=== PATIENT | male | born 1940 | race Caucasian/White ===

== ENCOUNTER → 2017-02-03 15:55 | Outpatient (CLI) | payer MEDICARE, OTHER ==
[2016-07-10 07:05] VITALS: BMI 28.1
[~2017-02-03 15:55] MED LIST: ASPIRIN EC81 MG PO; CARAFATE1 G/10 ML PO; FISH OIL 1,2001 CA1 PO; FLOMAX0.4 MG PO; FLUTICASONE PRO16 GM NS; HYTRIN10 MG PO; LEVOTHROID88 MCG PO; LEVOXYL100 MCG PO; NAPROSYN500 MG PO; PLAVIX75 MG PO; POTASSIUM99 M1 PO; PRAVACHOL20 MG PO; PROTONIX40 MG PO; RESTORIL15 MG PO
== END | disposition home or self-care (01) ==
LOC: D.CT 15:55
DX: R31.9 Hematuria, unspecified (principal)

== ENCOUNTER 2018-04-26 11:41 | Outpatient (CLI) | payer MEDICARE, OTHER ==
[~2018-04-26] VITALS: Ht 175.3 cm; Wt 75.5 kg
[2018-04-26 13:45] VITALS: BP 133/92; Ht 175.3 cm; Wt 75.5 kg
== END 2018-04-26 14:10 | disposition home or self-care (01) ==
LOC: D.OPS 11:41
DX: R33.9 Retention of urine, unspecified (principal); N39.0 Urinary tract infection, site not specified; Z01.812 Encounter for preprocedural laboratory examination

== ENCOUNTER 2018-05-19 06:25 | Day surgery (SDC) | payer MEDICARE, OTHER ==
[2018-05-17 16:30] LABS: HEMATOCRIT 35.4 % (42.0-54.0); HEMOGLOBIN 12.3 g/dL (13.5-17.5); MCH 32.5 pg (26.0-34.0); MCHC 34.7 g/dL (31.0-37.0); MCV 93.4 fL (80.0-100.0); MEAN PLATELET VOLUME 8.4 fL (7.4-10.4); RBC 3.79 10x6/uL (4.20-6.10); WBC 7.1 10x3/uL (4.8-10.8)
[~2018-05-19] VITALS: Ht 172.7 cm; Wt 70.3 kg
--- NOTE | ~2018-05-19 | OP ---
PATIENT NAME: ANTONIA SAMUEL MEDICAL RECORD: [id number] :38 LOCATION:D.OPS ADMISSION DATE: SURGEON: DAVID FONG MD DATE OF OPERATION: 05/19/2018 SURGEON: David Fong MD ANESTHESIA: General anesthesia by Clay Ruth CRNA. PREOPERATIVE DIAGNOSIS: Urinary retention due to obstructive benign prostatic hypertrophy. PROCEDURES: Cystoscopy, GreenLight laser transurethral resection of the prostate, power 80-100 laws, laser on time of 20 minutes 46 seconds, energy 109,779 kilojoules. FINDINGS: Very enlarged bilateral lateral lobes, which were very vascular. Single ureteral orifices bilaterally located some distance away from the bladder neck. No bladder tumors. Heavily trabeculated bladder with cellules and diverticula. COMPLICATIONS: None. ESTIMATED BLOOD LOSS: Minimal. CLINICAL HISTORY: This is a 78-year-old male, who went into urinary retention around of this year. He has had an indwelling Mercado catheter since then. He has been on medications, but he does not wish to continue being on medications. He wants to have a TURP to get out of urinary retention. A 26 years ago in [place], he had a TURP for obstructive BPH. His cardiac history includes 7 coronary artery stents, which were last placed in 2013. He was on Plavix. However, he saw Dr. Tapia recently and Dr. Tapia cleared him for surgery. Also, Dr. Tapia discontinued the Plavix. He last took Plavix 10 days ago. He is not allergic to any medications. He was given Levaquin IV economics consultant to the OR. DESCRIPTION OF PROCEDURE: The patient was given induction of general anesthesia. He was placed in dorsal lithotomy position and prepped and draped. The laser resectoscope was introduced. Penile urethra was nonobstructive with no signs of strictures. The prostatic lateral lobes were quite enlarged and meet in the midline. A lot of inflammatory tissue was seen from irritation from the indwelling Mercado catheter. Going into the bladder, the bladder was also irritated from the indwelling Mercado catheter. No bladder tumors were seen. Single ureteral orifices were seen at some distance away from the bladder neck. We then introduced the laser fiber and starting at 80 laws, we resected the posterior wall of the prostate from the bladder neck to just proximal to the verumontanum. The verumontanum was very difficult to see due to the inflammatory tissue around it. We immediately encountered quite significant venous bleeding. Going on the lateral lobes also to try to get control of coagulation, I had a lot of difficulty with one prominent vein in the right apex. Finally, with a lot of laser energy and using the laser vaporization as well as coagulation settings, I managed to get this venous bleeding under control. By this time, the prostate had become somewhat desiccated and we had increased the power level to 100 laws. Once the bleeding was under control, it was relatively quick to vaporize the rest of the BPH tissue. At the end of the procedure, we were down to the pseudocapsule all around from the bladder neck to OPERATIVE REPORT [id number] ANTONIA SAMUEL just proximal to the verumontanum. No bleeding of any kind was seen. Since the prostatic urethral surface is somewhat irregular, I inserted a Sensor wire into the bladder through the scope. The scope was then removed, leaving the wire in place. Over the wire, we inserted a 21-Burundian 3-way Mercado catheter with a chalkyitsik tip. Once the catheter was in the bladder, the wire was removed entirely. The catheter Mercado balloon was then inflated with 20 mL of sterile water. The inflow port was capped. The Mercado catheter was put to leg bag drainage. We will send the patient home with the Mercado catheter. He will come to my office tomorrow to have the catheter removed for a voiding trial. TRANSINT:[id number] Voice Confirmation ID: [id number] DOCUMENT ID: [id number] DAVID FONG MD at 1119 CC: [id number] DICTATION DATE: 05/19/18 1030 MISSION COORDINATOR: 05/19/18 1112 REG [facility] [address] [place] [address]
[2018-05-19 07:40] VITALS: BP 112/71; Ht 172.7 cm; Wt 70.3 kg
== END 2018-05-19 11:50 | disposition home or self-care (01) ==
LOC: D.OPS 06:25 → D.PAN 08:00 → D.OPS 08:00 → D.PAN 08:40 → D.OPS 08:40
PROVIDERS: Anesthesiology
DX: N40.1 Benign prostatic hyperplasia with lower urinary tract symptoms (principal); N13.8 Other obstructive and reflux uropathy; R33.8 Other retention of urine; Z01.812 Encounter for preprocedural laboratory examination

== ENCOUNTER → 2019-01-06 09:06 | Outpatient (CLI) | payer MEDICARE, OTHER ==
[2018-05-19 07:40] VITALS: BMI 23.6
== END | disposition home or self-care (01) ==
LOC: D.MRI 09:06
DX: M25.562 Pain in left knee (principal)

== ENCOUNTER → 2019-03-01 15:05 | Outpatient (CLI) | payer MEDICARE, OTHER ==
[2018-05-19 07:40] VITALS: BMI 23.6
== END | disposition home or self-care (01) ==
LOC: D.RAD 15:05
PROVIDERS: ATTEND Urology
DX: R10.9 Unspecified abdominal pain (principal)

== ENCOUNTER → 2019-03-01 18:37 | Outpatient (CLI) | payer MEDICARE, OTHER ==
[2018-05-19 07:40] VITALS: BMI 23.6
== END | disposition home or self-care (01) ==
LOC: D.LABREF 18:37
PROVIDERS: ATTEND Urology
DX: N39.0 Urinary tract infection, site not specified (principal)

== ENCOUNTER → 2019-03-06 14:23 | Outpatient (CLI) | payer MEDICARE, OTHER | END | disposition home or self-care (01) | LOC: D.CT 14:23 | DX: R10.9 Unspecified abdominal pain (principal) ==

== ENCOUNTER 2019-06-03 14:30 | Emergency (ER) | payer MEDICARE, OTHER ==
[~2019-06-03] VITALS: Ht 172.7 cm; Wt 71.4 kg
[2019-06-03 14:32] VITALS: Ht 172.7 cm; Wt 71.4 kg
[2019-06-03] MEDS ORDERED: VOLTAREN75 MG PO (16:15)
[2019-06-03 16:37] VITALS: BP 136/72
== END 2019-06-03 16:38 | disposition home or self-care (01) ==
LOC: D.ER 14:30
DX: S99.911A Unspecified injury of right ankle, initial encounter (principal); X50.1XXA Overexertion from prolonged static or awkward postures, initial encounter; Y93.89 Activity, other specified; Y92.89 Other specified places as the place of occurrence of the external cause

== ENCOUNTER → 2019-08-07 09:30 | Outpatient (CLI) | payer MEDICARE, OTHER ==
[2019-06-03 14:32] VITALS: BMI 23.9
[~2019-08-07 09:30] MED LIST changes: +VOLTAREN75 MG PO
== END | disposition home or self-care (01) ==
LOC: D.MRI 09:30
PROVIDERS: ATTEND Family Medicine
DX: M51.16 Intervertebral disc disorders with radiculopathy, lumbar region (principal)

== ENCOUNTER 2019-08-23 12:30 | Outpatient (CLI) | payer MEDICARE, OTHER ==
[~2019-08-23] VITALS: Ht 177.8 cm; Wt 71.4 kg
[2019-08-23 13:03] VITALS: BP 120/77; Ht 177.8 cm; Wt 71.4 kg
[2019-08-23 13:48] LABS: APPEARANCE CLEAR (CLEAR); BILIRUBIN NEGATIVE (NEGATIVE); COLOR YELLOW (YELLOW); GLUCOSE NEGATIVE (NEGATIVE); KETONE NEGATIVE (NEGATIVE); NITRITE NEGATIVE (NEGATIVE); PROTEIN NEGATIVE (NEGATIVE)
== END 2019-08-23 13:29 | disposition home or self-care (01) ==
LOC: D.OPS 12:30
PROVIDERS: ATTEND General Practice
DX: N39.0 Urinary tract infection, site not specified (principal)

== ENCOUNTER 2019-08-30 10:28 | Outpatient (CLI) | payer MEDICARE, OTHER ==
[~2019-08-30] VITALS: Ht 172.7 cm; Wt 72.7 kg
--- NOTE | ~2019-08-30 | HEMODYNAMI ---
PATIENT:ANTONIA SAMUEL MEDICAL RECORD: [id number] : 38 LOCATION:SVETLANA ADMISSION DATE: 08/30/19 Generatedon:08/30/201914:25 Patient name: ANTONIA SAMUEL Patient #: [id number] SSN: DO B: 1940 Date of study: 08/30/2019 Page: Of Hemodynamic Procedure Report Patient Data Patient Demographics First Name: ANTONIA Gender: Male Last Name: JIMMIE : 1940 [facility] Initial: MARY Age: 79 year(s) Patient #: [id number] Race: Unknown Additional ID: [id number] Contact details [address]: [address] [place] [address] [place] State: [place] City: [place] Zip code: [address] Admission Admission Data Admission Date: 08/30/2019 Admission Time: 10:28 Procedure Procedure Types Cath Procedure Peripheral Cath Diagnostic Procedure Kyphoplasty Kyphoplasty Lumbar Procedure Description Procedure Date Procedure Date: 08/30/2019 Procedure Start Time: 13:29 Procedure Staff Name Function Fredy Floydeben RT Scrub Clyde Mcrae Additional personnel Crow Chappell MD Performing Physician Carmen Saravia RN Nurse Deirdre Aguilar RT Monitor Trinh Robledo RN Nurse Procedure Data Cath Procedure Fluoroscopy Diagnostic fluoroscopy Total fluoroscopy Time: time: 13.2 min 13.2 min Diagnostic fluoroscopy Total fluoroscopy dose: 867 dose: 867 mGy mGy Hemodynamics Rest Heart Rate: 60 (bpm) Snapshots Pre Cath Intra NCS Post Cath Vital Signs Time Heart Resp SPO2 etCO2 NIBP (mmHg) Rhythm Pain Sedation Rate (ipm) (%) (mmHg) Status Level (bpm) 12:57:33 100 23.2 Measuring NSR 0 (11) 10(A) , No pain 12:58:17 100 12 129/81(93) NSR 0 (11) 10(A) , No pain 13:02:28 60 20 97 24.7 124/75(105) NSR 0 (11) 10(A) , No pain 13:06:37 58 19 98 20.2 137/75(113) NSR 0 (11) 10(A) , No pain 13:10:53 61 29 100 24.7 124/68(106) NSR 0 (11) 10(A) , No pain 13:15:03 60 20 100 21 119/71(98) NSR 0 (11) 10(A) , No pain 13:19:09 66 19 100 15.7 124/68(107) NSR 0 (11) 10(A) , No pain 13:23:21 61 17 98 10.5 115/67(94) NSR 0 (11) 10(A) , No pain 13:27:43 62 23 99 3.7 111/64(86) NSR 0 (11) 10(A) , No pain 13:30:09 62 18 99 3 114/63(85) NSR 0 (11) 10(A) , No pain 13:33:09 59 19 98 5.2 Measuring NSR 0 (11) 10(A) , No pain 13:33:25 60 19 99 4.5 125/69(109) NSR 0 (11) 10(A) , No pain 13:35:34 61 17 98 3.7 120/71(94) NSR 0 (11) 10(A) , No pain 13:37:43 61 15 98 3.7 115/67(92) NSR 0 (11) 10(A) , No pain 13:39:50 62 16 98 3.7 118/66(92) NSR 0 (11) 10(A) , No pain 13:41:55 61 18 98 6 121/75(97) NSR 0 (11) 10(A) , No pain 13:44:04 61 16 98 4.5 115/69(91) NSR 0 (11) 10(A) , No pain 13:46:11 63 17 98 1.5 114/69(86) NSR 0 (11) 10(A) , No pain 13:48:18 62 15 98 4.5 112/67(89) NSR 0 (11) 10(A) , No pain 13:50:25 60 15 98 4.5 116/64(94) NSR 0 (11) 10(A) , No pain 13:52:32 62 14 98 3.7 111/68(89) NSR 0 (11) 10(A) , No pain 13:54:39 61 15 98 3.7 112/65(87) NSR 0 (11) 10(A) , No pain 13:56:46 62 15 98 4.5 115/64(88) NSR 0 (11) 10(A) , No pain 13:58:53 62 15 98 3.7 115/66(86) NSR 0 (11) 10(A) , No pain 14:01:02 62 15 98 4.5 108/61(80) NSR 0 (11) 10(A) , No pain 14:03:07 62 13 98 4.5 108/65(79) NSR 0 (11) 10(A) , No pain 14:05:12 64 14 98 5.2 109/62(86) NSR 0 (11) 10(A) , No pain 14:07:19 61 15 98 3.7 109/62(88) NSR 0 (11) 10(A) , No pain 14:09:24 61 15 98 3.7 114/65(82) NSR 0 (11) 10(A) , No pain 14:11:33 63 14 98 2.2 109/64(90) NSR 0 (11) 10(A) , No pain 14:13:38 65 17 98 3.7 119/70(90) NSR 0 (11) 10(A) , No pain 14:15:45 62 14 98 6 115/69(87) NSR 0 (11) 10(A) , No pain 14:17:52 61 14 98 9 111/69(94) NSR 0 (11) 10(A) , No pain 14:19:57 64 14 98 8.2 115/68(93) NSR 0 (11) 10(A) , No pain 14:22:02 58 15 98 7.5 122/73(90) NSR 0 (11) 10(A) , No pain Procedure Log Time Note 12:52:35 Carmen Saravia RN sent for patient. Start room use. 12:52:40 Clyde Mcrae present and monitoring patient for TIVA. 12:52:54 Use device set IR Diagnostic 12:52:57 Sterile Angiographic Pack opened to sterile field. 12:52:57 Bag Decanter (2002S) opened to sterile field. 12:52:58 Tegaderm 4 x 4 (1626W) opened to sterile field. 12:53:08 Plan of Care:Hemodynamics will remain stable., Cardiac rhythm will remain stable., Comfort level will be maintained., Respiratory function will remain adequate., Patient/ family verbilizes understanding of procedure., Procedure tolerated without complication., Recovers from procedure without complications.. 12:53:14 Patient received from Outpatients to IR Alert and oriented. Tansferred to table in Prone position. 12:53:19 Warm blankets applied, and belkys hugger turned on for patient comfort. 12:53:20 Correct patient and procedure confirmed by team. 12:53:21 ECG and BP/O2 sat monitors applied to patient. 12:53:22 - 12:53:38 SEE ANESTHESIA NOTE FOR PRE PROCEDURE TIVA 12:53:39 - 12:53:48 Alarms reviewed by RMitchell NMitchell 12:53:48 Sharps counted by scrub and verified by RMitchellN. 12:53:54 Lumbar area was prepped with dura-prep and draped in sterile fashion 12:55:44 Vital chart was started 13:05:11 Baseline sample Acquired. 13:26:35 Physician arrived 13:28:36 --------ALL STOP TIME OUT------ 13:28:37 Final Timeout: patient, procedure, and site verified with staff and physician. All members of the team are in agreement. 13:29:14 Fire Safety Assessment: A--An alcohol-based skin anteseptic being used preoperatively., C--Open oxygen or nitrous oxide is being used. 13:29:21 Full Disclosure recording started 13:29:21 Procedure started. 13:29:26 Local anesthetic to Lumbar area with Lidocaine 1% by Crow Chappell MD.INITIAL ACCESS ONLY 13:47:25 Buford BONE BX 11GA kit opened to sterile field. 13:47:26 PIPE BNCMNT CURV BALLOON [id number] opened to sterile field. 14:15:34 Buford BONE CEMENT WITH NEEDLE AUTOPLEX Kit opened to sterile field. 14:16:37 Fluoroscopy time 13.20 minutes. 14:16:43 Fluoroscopy dose: 867 mGy 14:16:43 Flurop Dose total: 867 14:16:46 Procedure ended.(Physican Out) 14:16:48 Procedure and supply charges have been captured, reviewed, submitted an d are correct. 14:23:26 Report given to Outpatients. 14:24:05 Full Disclosure recording stopped Device Usage Item Name Manufacture Quantity Catalog Hospital Part Current Minim al Lot# / Number Charge Number Stock Stock Serial# Code Bag Decanter Microtek 1 [id number] 5 () Medical Inc. Sterile Cardinal 1 [id number] [id number] 5 Angiographic Health Pack Tegaderm 4 x 3M 1 1626W [id number] 345165 [id number] 5 4 (1626W) Buford BONE Pipe 1 [id number] [id number] [id number] 250551 5 BX 11GA kit PIPE Buford 1 [id number] 220944 174619 835174 1 BNCMNT CURV BALLOON [id number] Pipe BONE Buford 1 [id number] 678169 381233 086183 5 CEMENT WITH NEEDLE AUTOPLEX Kit Signature Audit [place] Stage Time Signature Unsigned Intra-Procedure 08/30/2019 Deirdre Aguilar 2:25:53 PM RT(R) [place] [id number] [place] [address]
[2019-08-30 11:23] LABS: EOSINOPHILS 12.1 % (0-7); HEMATOCRIT 39.3 % (42.0-54.0); HEMOGLOBIN 13.2 g/dL (13.5-17.5); IMMATURE GRANULOCYTES 0.6 % (0-5); LYMPHOCYTES 28.6 % (15-50); MCH 32.6 pg (26.0-34.0); MCHC 33.6 g/dL (31.0-37.0); MEAN PLATELET VOLUME 8.6 fL (7.4-10.4); MONOCYTES 10.5 % (2-11); NEUTROPHILS 47.2 % (40-80); PLATELET COUNT 256 10x3/uL (130-400); RBC 4.05 10x6/uL (4.20-6.10); RDW 12.6 % (11.5-14.5); WBC 6.9 10x3/uL (4.8-10.8)
[2019-08-30 11:34] VITALS: BP 145/63; Ht 172.7 cm; Wt 72.7 kg
[2019-08-30 11:34] LABS: CALC OSMOLALITY 279 mosm/kg (275-300); CALCIUM 9.4 mg/dL (8.5-10.1); CARBON DIOXIDE 29.3 mmol/L (21.0-32.0); CHLORIDE - SERUM 103 mmol/L (98-107); CREATININE - SERUM 0.8 mg/dL (0.6-1.3); GLUCOSE 98 mg/dL (74-106); POTASSIUM - SERUM 4.6 mmol/L (3.5-5.1); SODIUM 139 mmol/L (136-145); UREA NITROGEN 18 mg/dL (7-18); eGFR NON AFRICAN AMERICAN > 90 mL/min (90-120)
[2019-08-30 11:43] LABS: APTT 26.6 SECONDS (22.8-39.4); INR 1.01 (0.85-1.17); PROTIME 12.8 SECONDS (11.6-15.0)
--- NOTE | 2019-08-30 15:15 | NUR ---
1430 SEE POST PROCEDURE CHECKLIST FOR VITAL SIGN TRENDS. TIME FRAME GIVEN FOR DISCHARGE. REMINDED PT TO STAY FLAT. AT SIDE 1445 WARM BLANKETS FOR COMFORT. 1500 SUSANNE DUMONT RN ROUNDS AND GIVES PT AND PT'S DISCHARGE INSTRUCTIONS.
== END 2019-08-30 16:50 | disposition home or self-care (01) ==
LOC: D.SP 10:28 → D.RAD 13:00 → D.SP 16:50
PROVIDERS: ATTEND General Practice
DX: M48.56XA Collapsed vertebra, not elsewhere classified, lumbar region, initial encounter for fracture (principal)

== ENCOUNTER 2019-08-31 22:53 | Emergency (ER) | payer MEDICARE, OTHER ==
[~2019-08-31] VITALS: Ht 172.7 cm; Wt 72.7 kg
[2019-08-31 22:56] VITALS: Ht 172.7 cm; Wt 72.7 kg
[2019-09-01] MEDS ORDERED: HYDROCODONE-A1 UDTA2 PO (01:20)
[2019-09-01 02:25] VITALS: BP 126/75
== END 2019-09-01 02:38 | disposition home or self-care (01) ==
LOC: D.ER 22:53
DX: S42.002A Fracture of unspecified part of left clavicle, initial encounter for closed fracture (principal); W19.XXXA Unspecified fall, initial encounter

== ENCOUNTER 2019-09-04 16:57 | Emergency (ER) | payer MEDICARE, OTHER ==
[~2019-09-04] VITALS: Ht 172.7 cm; Wt 72.7 kg
[~2019-09-04 16:57] MED LIST changes: +HYDROCODONE-A1 UDTA2 PO
[2019-09-04 17:06] VITALS: Ht 172.7 cm; Wt 72.7 kg
[2019-09-04 21:43] VITALS: BP 130/51
== END 2019-09-04 21:43 | disposition other institution (70) ==
LOC: D.ER 16:57
DX: S32.402A Unspecified fracture of left acetabulum, initial encounter for closed fracture (principal); S42.002A Fracture of unspecified part of left clavicle, initial encounter for closed fracture; S32.592A Other specified fracture of left pubis, initial encounter for closed fracture; W19.XXXA Unspecified fall, initial encounter

== ENCOUNTER → 2019-10-06 09:11 | Outpatient (CLI) | payer MEDICARE, OTHER ==
[2019-09-04 17:06] VITALS: BMI 24.3
== END | disposition home or self-care (01) ==
LOC: D.CT 09:11
PROVIDERS: ATTEND Clinical Nurse Specialist Family Health
DX: S32.402A Unspecified fracture of left acetabulum, initial encounter for closed fracture (principal)

== ENCOUNTER → 2020-01-30 08:54 | Outpatient (CLI) | payer MEDICARE, OTHER ==
[2019-12-22 14:01] VITALS: BMI 24.3
[~2020-01-30 08:54] MED LIST changes: +HYDROCODON-ACE1 EAC7 PO; +LOW DOSE ASPIRI81 M1 PO; +SYNTHROID112 MCG PO
== END | disposition home or self-care (01) ==
LOC: D.CT 08:30
PROVIDERS: ATTEND Family Medicine
DX: I73.9 Peripheral vascular disease, unspecified (principal)

== ENCOUNTER → 2020-03-07 09:34 | Outpatient (CLI) | payer MEDICARE, OTHER ==
[2019-12-22 14:01] VITALS: BMI 24.3
== END | disposition home or self-care (01) ==
LOC: D.MRI 03-06 10:00
PROVIDERS: ATTEND Family Medicine
DX: M51.16 Intervertebral disc disorders with radiculopathy, lumbar region (principal)

== ENCOUNTER 2020-03-20 11:56 | Inpatient (IN) | payer MEDICARE, OTHER ==
[~2020-03-20] VITALS: Ht 172.7 cm; Wt 75.9 kg
--- NOTE | ~2020-03-20 | OP ---
PATIENT NAME: ANTONIA SAMUEL MEDICAL RECORD: [id number] :38 LOCATION:D.MS Morgan2214 ADMISSION DATE:03/21/20 SURGEON: TREY SIGALA MD DATE OF OPERATION: 03/22/2020 PREOPERATIVE DIAGNOSES: Lumbar spinal stenosis and foraminal stenosis at L3-L4 on the left. POSTOPERATIVE DIAGNOSES: Lumbar spinal stenosis and foraminal stenosis at L3-L4 on the left. PROCEDURE: Left L3-L4 lumbar laminotomy, medial facetectomy and foraminotomy with METRx retractor. SURGEON: Trey Sigala MD DESCRIPTION AND TECHNIQUE: After induction of general endotracheal anesthesia, the patient was rolled prone on a Mauricio frame. Lumbar spine was prepped and draped in usual sterile fashion. Fluoroscopic x-ray and a spinal needle localized the L3-L4 interspace on the left side. A series of dilators were used to advance a METRx retractor at the L3-L4 interspace on the left. Series of dilators were used to advance a METRx retractor at L3-L4 on the left. The level was confirmed with fluoroscopic x-ray. Midas-Adan drill and microscope were used to perform a laminotomy, medial facetectomy and foraminotomy at L3-L4 on the left. Hypertrophied ligamentum flavum was removed with Cloward rongeurs. The left L3 and L4 nerve roots were decompressed in this process. Meticulous hemostasis was maintained throughout the wound. Ancef irrigant solution was used until it was crystal clear. The retractor was removed. The fascia was closed with 2-0 Vicryl suture. Subdermal layer was closed with 3-0 Vicryl suture. The skin was closed with tiffanie. A sterile dressing was applied to the wound. The patient was awakened in good condition, taken to recovery. All counts were reported as correct. Estimated blood loss was minimal. TRANSINT:[id number] Voice Confirmation ID: [id number] DOCUMENT ID: [id number] TREY SIGALA MD CC: [id number] DICTATION DATE: 04/29/20700 FRAME FEEDER: 04/29/20 0914 DIS IN 03/25/[address] [facility] [address] [place] [address]
[2020-03-20] MEDS ORDERED: CILOSTAZOL100 MG PO (12:29)
[2020-03-20 13:06] LABS: BASOPHILS 0.5 % (0-2); EOSINOPHILS 5.1 % (0-7); HEMATOCRIT 39.4 % (42.0-54.0); HEMOGLOBIN 13.2 g/dL (13.5-17.5); IMMATURE GRANULOCYTES 0.5 % (0-5); LYMPHOCYTES 22.1 % (15-50); MCH 32.4 pg (26.0-34.0); MCHC 33.5 g/dL (31.0-37.0); MCV 96.8 fL (80.0-100.0); MEAN PLATELET VOLUME 7.9 fL (7.4-10.4); MONOCYTES 10.5 % (2-11); NEUTROPHILS 61.3 % (40-80); PLATELET COUNT 278 10x3/uL (130-400); RBC 4.07 10x6/uL (4.20-6.10); RDW 12.9 % (11.5-14.5); WBC 6.1 10x3/uL (4.8-10.8)
[2020-03-20 13:15] LABS: CALC OSMOLALITY 264 mosm/kg (275-300); CALCIUM 9.3 mg/dL (8.5-10.1); CARBON DIOXIDE 26.5 mmol/L (21.0-32.0); CHLORIDE - SERUM 100 mmol/L (98-107); CREATININE - SERUM 0.6 mg/dL (0.6-1.3); GLUCOSE 97 mg/dL (74-106); POTASSIUM - SERUM 4.1 mmol/L (3.5-5.1); SODIUM 133 mmol/L (136-145); UREA NITROGEN 10 mg/dL (7-18); eGFR NON AFRICAN AMERICAN > 90 mL/min (90-120)
[2020-03-20 13:45] VITALS: BP 129/95
[2020-03-20 14:37] VITALS: BP 129/95; Ht 172.7 cm; Wt 75.9 kg
[2020-03-20 17:06] VITALS: BP 153/90
--- NOTE | 2020-03-20 18:15 | NUR ---
PATIENT IN BED WITH NO COMPLAINTS. DR. CAIN INTO SEE PATIENT. CALL LIGHT WITHIN REACH.
[2020-03-20 20:00] VITALS: BP 132/82
--- NOTE | 2020-03-20 20:00 | NUR ---
PT SITTING UP IN BED WITHOUT DISTRESS, AOX4. URINAL AT BEDSIDE. WEAKNESS TO BILAT LEGS BUT PT IS ABLE TO MOVE THEM WHILE SITTING IN BED. BED ALARM ON. STATES PAIN 8/10 IN BACK, GAVE NORCO ORDERED. DENIES OTHER NEEDS, CL IN REACH, WILL CTM
[2020-03-21] VITALS: BP 134/77
[2020-03-21] MEDS ORDERED: HUMULIN 70100 UNIT/1 (03:42)
[2020-03-21] MEDS ORDERED: INVOKANA100 MG PO (03:42)
[2020-03-21] MEDS ORDERED: HYDRALAZINE HCL50 MG PO (03:43)
[2020-03-21] MEDS ORDERED: HYDROCODON-ACE1 EAC7 PO (03:44)
[2020-03-21] MEDS ORDERED: ISOSORBIDE DINI20 MG PO (03:44)
[2020-03-21] MEDS ORDERED: OXYBUTYNIN CHLOR5 M1 PO (03:44)
[2020-03-21] MEDS ORDERED: GABAPENTIN300 MG PO (03:45)
[2020-03-21 04:00] VITALS: BP 134/82
[2020-03-21] MEDS ORDERED: ZYLOPRIM300 MG (04:14)
[2020-03-21] MEDS ORDERED: ALDACTONE25 MG PO (04:15)
[2020-03-21] MEDS ORDERED: PEPCID40 MG PO (04:15)
[2020-03-21] MEDS ORDERED: PLAVIX75 MG PO (04:15)
--- NOTE | 2020-03-21 06:54 | HP ---
PATIENT: ANTONIA SAMUEL MEDICAL RECORD: [id number] ACCOUNT: [id number] LOCATION:D.MS [facility]14 : 39 ADMISSION DATE: 03/20/20 PCP: ARIELLA TIERNEY MD HISTORY AND PHYSICAL EXAMINATION REASON FOR ADMISSION: Back pain and inability to walk. HISTORY OF PRESENT ILLNESS: The patient is an 80-year-old male, former [employer] , who had an L1 compression fracture with kyphoplasty several months ago. Sometime after that he fell and had a pelvic fracture. He was treated conservatively, was in rehab and was able to walk when he left rehab. Over the last several weeks, he had increasing trouble with his back pain and leg weakness. He says his left leg is very weak and he really cannot use it much at all. His right leg was getting weak as well. He has also had a little more trouble urinating and defecating. He had outpatient CTA of his lower extremities showing mild peripheral vascular disease due to exertional claudication, was placed on aspirin and Pletal without improvement. He has been increasing trouble with leg weakness. MRI was ordered of his lumbar spine resulting on 03/07/2020 revealing old L5-S1 lumbar fusion, vertebroplasty changes at L1, multiple T1-T2 hypertensive lesions are noted in the vertebral bodies consistent with hemangiomas, interval development of T2, hyperintense signal to lower thoracic cord at T12-L1 representing myelomalacia, anterior subluxation of L5-S1 mild, unchanged from prior and 60% compression fracture of the L1. Additionally, severe left neuro foraminal narrowing noted at L2-L3 and severe right L3-L4 foraminal narrowing. His states that he is unable to walk very well for the last week or so. Consultation was obtained with Dr. Sigala who recommended he be admitted to the hospital for further evaluation. He denies fever. PAST HISTORY: Comminuted fracture of the left acetabulum, left superior and inferior pubic rami in November of 2019 post-fall, CAD post-PTCA remotely, hypothyroidism, L1 compression fracture, lumbar stenosis, foraminal stenosis, history of upper gastrointestinal bleed with anemia due to gastric AVMs, hypothyroidism, PTCA of RCA and LAD, BPH. PAST SURGICAL HISTORY: He has had prostatic GreenLight TURP, L5-S1 fusion, remote fracture of the left clavicle, remote TURP 30 years ago, simple right renal cyst of lower pole, peripheral vascular disease, cholecystectomy. SOCIAL HISTORY: He is and retired . He is remote alcohol drinker, none recently. No tobacco use. ALLERGIES: None known. HOME MEDICATIONS: Pravastatin 20 mg at bedtime, levothyroxine 112 mcg p.o. every morning and at bedtime, aspirin 81 mg a day, Pletal 100 mg b.i.d., Norco5/325 one to two every 6 hours for pain. REVIEW OF SYSTEMS: GENERAL: He has not had fever, been fatigued or loss of appetite. HEENT: No recent visual change, sinus congestion, or sore throat. RESPIRATORY: No severe cough. CARDIAC: No exertional chest pain, claudication or edema. GASTROINTESTINAL: No nausea, vomiting, change in stools or blood per rectum. GENITOURINARY: Nocturia once or twice nightly. No dysuria. Has slow voiding HISTORY AND PHYSICAL [id number] ANTONIA SAMUEL stream and urgency. MUSCULOSKELETAL: Chronic lower back pain without radiation currently. NEUROLOGIC: Denies memory loss. Admits to motor weakness in both lower extremities, left greater than right. Poor balance. Currently, he states he is unable to walk due to leg weakness. PHYSICAL EXAMINATION: VITAL SIGNS: Temp 98.6, heart rate is 80, blood pressure 130/80. HEENT: Eyes are clear. Oropharynx unremarkable. NECK: Supple, without bruits. CHEST: Clear. HEART: Regular without murmur. ABDOMEN: Soft, nontender, no organomegaly or bruits. EXTREMITIES: Did show good range of motion to passive exam. NEUROLOGICAL: Oriented to person, place, and time. Cranial nerves are grossly intact. Gait was not testable due to leg weakness. He can dorsiflex both of his feet, right greater than left. He has some quadriceps strength noted with movement and flexion of the knee on the right, less so on the left. Reflexes 1+ throughout. PSYCHIATRIC: Unremarkable. LABORATORY AND DIAGNOSTIC DATA: CBC; white count 6000, H&H is 13 and 39.4 respectively. BMP shows sodium 133, BUN and creatinine are normal at 10 and 0.6, glucose is 97. MRI of the lumbar spine dated 03/07/2020 shows above findings. ASSESSMENT: Paralytic gait due to lumbar stenosis and remote L1 compression fracture, recent falls secondary to above, stable coronary artery disease, stable peripheral arterial disease, chronic back pain, benign prostatic hyperplasia, hyperlipidemia, hypothyroidism. PLAN: The patient is admitted at Dr. Sigala's request for further neurosurgical evaluation and potential surgery. TRANSINT:[id number] Voice Confirmation ID: [id number] DOCUMENT ID: [id number] ARIELLA TIERNEY MD at 0654 CC: [id number] DICTATION DATE: 03/20/20 1334 DE ICER KIT ASSEMBLER: 03/20/20 1639 [place] [address]
[2020-03-21 08:02] VITALS: BP 135/77
--- NOTE | 2020-03-21 09:30 | NUR ---
PATIENT NO LONGER NPO. DR. TIERNEY SAID START IV TONIGHT FOR NPO P MN. SURGERY TOMORROW PER DR. CAIN. NO ORDERS AT THIS TIME.
[2020-03-21 12:06] VITALS: BP 137/78
[2020-03-21 16:46] VITALS: BP 138/76
--- NOTE | 2020-03-21 18:53 | NUR ---
CALLED DR. ADAMS AND TOLD HIM ABOUT THE CONSULT FOR PATIENT. STATED HE WILL CHECK WITH HIM TOMORROW IF NEEDED, SINCE DR. CAIN IS SUPPOSE TO DO A PROCEDURE.
[2020-03-21 20:00] VITALS: BP 128/99
[2020-03-22] VITALS (13 sets, daily range): BP systolic 100–154; BP diastolic 59–96
[2020-03-22 06:47] LABS: BASOPHILS 0.6 % (0-2); EOSINOPHILS 7.1 % (0-7); HEMATOCRIT 39.2 % (42.0-54.0); IMMATURE GRANULOCYTES 0.2 % (0-5); LYMPHOCYTES 30.3 % (15-50); MCH 32.5 pg (26.0-34.0); MCHC 33.2 g/dL (31.0-37.0); MONOCYTES 11.3 % (2-11); NEUTROPHILS 50.5 % (40-80); PLATELET COUNT 258 10x3/uL (130-400); WBC 5.4 10x3/uL (4.8-10.8)
[2020-03-22 07:02] LABS: CALC OSMOLALITY 275 mosm/kg (275-300); CALCIUM 9.5 mg/dL (8.5-10.1); CARBON DIOXIDE 25.9 mmol/L (21.0-32.0); CHLORIDE - SERUM 103 mmol/L (98-107); CREATININE - SERUM 0.7 mg/dL (0.6-1.3); GLUCOSE 109 mg/dL (74-106); POTASSIUM - SERUM 3.9 mmol/L (3.5-5.1); SODIUM 137 mmol/L (136-145); UREA NITROGEN 14 mg/dL (7-18); eGFR NON AFRICAN AMERICAN > 90 mL/min (90-120)
--- NOTE | 2020-03-22 08:53 | NUR ---
PT ALERT X 4. BREATH SOUNDS CLEAR BILAT. IV TO LEFT FOREARM, PATENT, DRESSING CDI. PT PREOP COMPLETE. PT REPORTING PAIN OF 6/10, WILL MONITOR. BED LOW, CALL LIGHT IN REACH. NO OTHER NEEDS AT THIS TIME.
--- NOTE | 2020-03-22 10:10 | NUR ---
PT ALREADY GONE TO SURGERY, UNABLE TO COMPLETE ORDERED EKG.
[2020-03-23] VITALS: BP 98/62
[2020-03-23 04:00] VITALS: BP 113/63
[2020-03-23 05:39] LABS: BASOPHILS 0.1 % (0-2); EOSINOPHILS 0.1 % (0-7); HEMATOCRIT 34.6 % (42.0-54.0); HEMOGLOBIN 11.4 g/dL (13.5-17.5); IMMATURE GRANULOCYTES 0.3 % (0-5); LYMPHOCYTES 11.9 % (15-50); MCHC 32.9 g/dL (31.0-37.0); MCV 97.2 fL (80.0-100.0); MEAN PLATELET VOLUME 8.1 fL (7.4-10.4); MONOCYTES 7.6 % (2-11); PLATELET COUNT 288 10x3/uL (130-400); RBC 3.56 10x6/uL (4.20-6.10); RDW 12.9 % (11.5-14.5)
[2020-03-23 05:49] LABS: WBC 10.5 10x3/uL (4.8-10.8)
[2020-03-23 05:59] LABS: CALC OSMOLALITY 265 mosm/kg (275-300); CALCIUM 9.2 mg/dL (8.5-10.1); CARBON DIOXIDE 24.1 mmol/L (21.0-32.0); CHLORIDE - SERUM 99 mmol/L (98-107); CREATININE - SERUM 0.8 mg/dL (0.6-1.3); POTASSIUM - SERUM 4.2 mmol/L (3.5-5.1); SODIUM 130 mmol/L (136-145); UREA NITROGEN 16 mg/dL (7-18); eGFR NON AFRICAN AMERICAN > 90 mL/min (90-120)
[2020-03-23 06:00] LABS: GLUCOSE 163 mg/dL (74-106)
--- NOTE | 2020-03-23 07:47 | NUR ---
RESTING IN BED, NO DISTRESS NOTED, COWART TO GRAVITY, FLUIDS SL, CONT TO MONITOR PAIN AND MOBILITY
[2020-03-23 08:02] VITALS: BP 110/71
[2020-03-23 13:58] VITALS: BP 119/71
[2020-03-23 18:13] VITALS: BP 115/69
[2020-03-23 20:00] VITALS: BP 113/75
[2020-03-24] VITALS: BP 124/67
[2020-03-24 04:00] VITALS: BP 114/60
--- NOTE | 2020-03-24 04:12 | NUR ---
PT C/O PAIN 07/08. GAVE 1 TAB NORCO-10 PO. EMPTIED COWART 900 CC'S. NO OTHER NEEDS. WILL REASSESS AND CONTINUE TO MONITOR.
[2020-03-24 05:46] LABS: BASOPHILS 0.5 % (0-2); EOSINOPHILS 4.4 % (0-7); HEMATOCRIT 35.3 % (42.0-54.0); HEMOGLOBIN 11.4 g/dL (13.5-17.5); IMMATURE GRANULOCYTES 0.3 % (0-5); LYMPHOCYTES 18.2 % (15-50); MCH 32.1 pg (26.0-34.0); MCHC 32.3 g/dL (31.0-37.0); MEAN PLATELET VOLUME 8.3 fL (7.4-10.4); MONOCYTES 8.1 % (2-11); NEUTROPHILS 68.5 % (40-80); PLATELET COUNT 279 10x3/uL (130-400); RBC 3.55 10x6/uL (4.20-6.10); RDW 13.3 % (11.5-14.5); WBC 9.8 10x3/uL (4.8-10.8)
[2020-03-24 05:55] LABS: MCV 99.4 fL (80.0-100.0)
[2020-03-24 06:15] LABS: CALCIUM 9.2 mg/dL (8.5-10.1); CARBON DIOXIDE 26.1 mmol/L (21.0-32.0); CHLORIDE - SERUM 104 mmol/L (98-107); CREATININE - SERUM 0.7 mg/dL (0.6-1.3); POTASSIUM - SERUM 3.7 mmol/L (3.5-5.1); SODIUM 137 mmol/L (136-145); eGFR NON AFRICAN AMERICAN > 90 mL/min (90-120)
[2020-03-24 06:27] LABS: CALC OSMOLALITY 273 mosm/kg (275-300); GLUCOSE 108 mg/dL (74-106); UREA NITROGEN 11 mg/dL (7-18)
--- NOTE | 2020-03-24 08:00 | NUR ---
ASSESSMENT PER FLOW SHEET. FALL PREVENTION IN PLACE WITH JASMYNE. DOOR OPEN
[2020-03-24 09:50] VITALS: BP 133/71
[2020-03-24 13:40] VITALS: BP 115/52
[2020-03-24 16:00] VITALS: BP 122/94
[2020-03-24 20:00] VITALS: BP 148/76
[2020-03-25] VITALS: BP 138/85
[2020-03-25 04:00] VITALS: BP 139/75
--- NOTE | 2020-03-25 08:42 | NUR ---
PT ALERT X 4. BREATH SOUNDS CLEAR BILAT. NO IV ACCESS AT THIS TIME. DRESSING TO BACK CDI. PT REPORTING PAIN OF 9/10, WILL MONITOR. COWART IN PLACE, URINE YELLOW. BED LOW, CALL LIGHT IN REACH. NO OTHER NEEDS AT THIS TIME.
[2020-03-25 09:05] VITALS: BP 122/73
--- NOTE | 2020-03-25 11:07 | NUR ---
Rehab Note- Acute Inpatient Rehab prescreen order received. The patient is a good inpatient rehab candidate when medically stable will accept to [facility] Acute Inpatient Rehab. Thank you for this referral! Tamiko Martines RN Clinical Liaison, [facility] Rehab
--- NOTE | 2020-03-25 12:28 | NUR ---
LUMBAR PAINTER ON 03/22/[address] CAIN. NO SKIN INTEGRITY ISSUES NOTED.
[2020-03-25 12:54] VITALS: BP 114/71; BP 124/73
--- NOTE | 2020-03-25 13:42 | MORECARE ---
CASE MANAGEMENT DISCHARGE SUMMARY PATIENT: ANTONIA SAMUEL UNIT: [id number] ADM DATE: 03/21/20 AGE: 80 : 39 SEX: M ROOM/BED: D.2214 AUTHOR: AYSE ROBLES PHYSICIAN: REFERRING PHYSICIAN: ARIELLA TIERNEY MD DATE OF SERVICE: 03/25/20 Discharge Plan Patient Name: ANTONIA SAMUEL Facility: [facility]:[place] : 1940 Planned Disposition: Inpatient Rehab Anticipated Discharge Date: Discharge Date: Expected LOS: Initial Reviewer: [email or web address] Initial Review Date: 03/20/2020 Generated: 03/25/20 2:41 pm DCP- Discharge Planning Updated by [email or web address]: Mary Dobson on 03/20/20 3:[address] DIAZ GIVEN AND EXPLAINED Coverage Notice Reviewer: [email or web address] - Mary Dobson Notice Issued Date-Time: 03/20/2020 16:55 Notice Type: Medicare Outpatient Observation Notice Notice Delivered To: Patient Relationship to Patient: Act Tutor Name: Delivery Method: HAND - Hand Delivered Karen Days: Prior Verbal Notification: Recipient Understood Notice: Yes Recipient Signature: Yes Med Rec Note Co-signed by Attending: Coverage Notice Comment: DIAZ GIVEN AND EXPLAINED Patient Name: ANTONIA SAMUEL Page [phone] at 1342 All edits/amendments must be made on the electronic document DICTATION DATE: 03/25/20 1341 BLEND TECHNICIAN: TOÑO 03/25/20 1341 RPT#: [id number] DC DATE: STATUS: ADM IN [facility] [address] [place] [address] END OF REPORT
--- NOTE | 2020-03-25 13:50 | MORECARE ---
CASE MANAGEMENT DISCHARGE SUMMARY PATIENT: ANTONIA SAMUEL UNIT: [id number] ADM DATE: 03/21/20 AGE: 80 : 39 SEX: M ROOM/BED: D.2214 AUTHOR: AYSE ROBLES PHYSICIAN: REFERRING PHYSICIAN: ARIELLA TIERNEY MD DATE OF SERVICE: 03/25/20 Discharge Plan Patient Name: ANTONIA SAMUEL Facility: [facility]:[place] : 1940 Planned Disposition: Inpatient Rehab Anticipated Discharge Date: Discharge Date: Expected LOS: Initial Reviewer: [email or web address] Initial Review Date: 03/20/2020 Generated: 03/25/20 2:49 pm Comments DCP- Discharge Planning Updated by [id number]: Mary Dobson on 03/25/20 12:[address] Patient Name: ANTONIA SAMUEL Admission Status: Elective Accout number: [id number] Admission Date: 03-21-2020 : 1940 Admission Diagnosis: Attending: ARIELLA TIERNEY Current LOS: 4 Anticipated DC Date: Planned Disposition: Inpatient Rehab Primary Insurance: MEDICARE A & B Discharge Planning Comments: CM met with patient to complete initial dc planning assessment. CM educated patient on the CM role and verbal consent given by patient to complete assessment. Patient lives at home with his where he is partially independent with his care. At discharge patient plans to go to inpatient rehab at [facility] and feels this is a safe discharge. CM discussed availability of home health, rehab services, and medical equipment. He has a cane, walker, shower chair, BSC at home. He is having difficulties getting into the shower. IMM served and explained and RICHARD obtained for inpatient patient rehab. Patient states his is aware of him going to rehab today. Patient denied known discharge needs at this time. CM will continue to follow and will assist as needed with dc plans/needs. Cardiac Cath Rn: Mary Dobson DCP- Discharge Planning Updated by [email or web address]: Mary Dobson on 03/20/20 3:[address] DIAZ GIVEN AND EXPLAINED DCPIA - Discharge Planning Initial Assessment Updated by [email or web address]: Mary Dobson on 03/25/20 1:42 pm * Is the patient Alert and Oriented? Yes * How many steps to enter\exit or inside your home? RAMP * PCP * [facility] * Preadmission Environment Home with Family * ADLs Independent * Equipment Bedside Commode Cane Rolling Walker Shower Chair * List name and contact numbers for known caregivers / representatives who currently or will assist patient after discharge: SALLY SAMUEL () [phone] * Verbal permission to speak to the caregivers and representatives has been obtained from the patient. N/A * Community resources currently utilized None * Additional services required to return to the preadmission environment? Yes * Can the patient safely return to the preadmission environment? No * Has this patient been hospitalized within the prior 30 days at any hospital? No Coverage Notice Reviewer: [id number] Dobson Notice Issued Date-Time: 03/20/2020 16:55 Notice Type: Medicare Outpatient Observation Notice Notice Delivered To: Patient Relationship to Patient: National Accounts Sales Name: Delivery Method: HAND - Hand Delivered Karen Days: Prior Verbal Notification: Recipient Understood Notice: Yes Recipient Signature: Yes Med Rec Note Co-signed by Attending: Coverage Notice Comment: DIAZ GIVEN AND EXPLAINED Reviewer: ZAID Dobson Notice Issued Date-Time: 03/25/2020 13:40 Notice Type: IM Discharge Notice Notice Delivered To: Patient Relationship to Patient: National Accounts Sales Name: Delivery Method: HAND - Hand Delivered Karen Days: Prior Verbal Notification: Recipient Understood Notice: Yes Recipient Signature: Yes Med Rec Note Co-signed by Attending: Coverage Notice Comment: Reviewer: [id number] Dobson Notice Issued Date-Time: 03/25/2020 13:40 Notice Type: Patient Choice Letter Notice Delivered To: Patient Relationship to Patient: National Accounts Sales Name: Delivery Method: HAND - Hand Delivered Karen Days: Prior Verbal Notification: Recipient Understood Notice: Yes Recipient Signature: Yes Med Rec Note Co-signed by Attending: Coverage Notice Comment: richard for inpatient at [facility] Last DP export: 03/25/20 12:42 p Patient Name: ANTONIA SAMUEL Page [phone] at 1350 All edits/amendments must be made on the electronic document DICTATION DATE: 03/25/20 1349 IT HELP DESK MANAGER: TOÑO 03/25/20 1349 RPT#: [id number] DC DATE: STATUS: ADM IN [facility] [address] [place] [address] END OF REPORT
--- NOTE | 2020-03-25 18:38 | NUR ---
DISCHARGE PAPERWORK SIGNED, ALL QUESTIONS ANSWERED. TRANSFERRED TO REHAB VIA BED.
--- NOTE | 2020-03-26 09:12 | MORECARE ---
CASE MANAGEMENT DISCHARGE SUMMARY PATIENT: ANTONIA SAMUEL UNIT: [id number] ADM DATE: 03/21/20 AGE: 80 : 39 SEX: M ROOM/BED: D.2214 AUTHOR: AYSE ROBLES PHYSICIAN: REFERRING PHYSICIAN: ARIELLA TIERNEY MD DATE OF SERVICE: 03/26/20 Discharge Plan Patient Name: ANTONIA SAMUEL Facility: [facility]:[place] : 1940 Planned Disposition: Inpatient Rehab Anticipated Discharge Date: Discharge Date: 03/25/2020 Expected LOS: Initial Reviewer: [id number] Initial Review Date: 03/20/2020 Generated: 03/26/20 10:12 am Comments DCP- Discharge Planning Updated by [id number]: Mary Dobson on 03/25/20 12:[address] Patient Name: ANTONIA SAMUEL Admission Status: Elective Accout number: [id number] Admission Date: 03-21-2020 : 1940 Admission Diagnosis: Attending: ARIELLA TIERNEY Current LOS: 4 Anticipated DC Date: Planned Disposition: Inpatient Rehab Primary Insurance: MEDICARE A & B Discharge Planning Comments: CM met with patient to complete initial dc planning assessment. CM educated patient on the CM role and verbal consent given by patient to complete assessment. Patient lives at home with his where he is partially independent with his care. At discharge patient plans to go to inpatient rehab at [facility] and feels this is a safe discharge. CM discussed availability of home health, rehab services, and medical equipment. He has a cane, walker, shower chair, BSC at home. He is having difficulties getting into the shower. IMM served and explained and RICHARD obtained for inpatient patient rehab. Patient states his is aware of him going to rehab today. Patient denied known discharge needs at this time. CM will continue to follow and will assist as needed with dc plans/needs. Editor Publications: Mary Dobson DCP- Discharge Planning Updated by [email or web address]: Mary Dobson on 03/20/20 3:[address] DIAZ GIVEN AND EXPLAINED DCPIA - Discharge Planning Initial Assessment Updated by [email or web address]: Mary Dobson on 03/25/20 1:42 pm * Is the patient Alert and Oriented? Yes * How many steps to enter\exit or inside your home? RAMP * PCP * [facility] * Preadmission Environment Home with Family * ADLs Independent * Equipment Bedside Commode Cane Rolling Walker Shower Chair * List name and contact numbers for known caregivers / representatives who currently or will assist patient after discharge: SALLY SAMUEL () [phone] * Verbal permission to speak to the caregivers and representatives has been obtained from the patient. N/A * Community resources currently utilized None * Additional services required to return to the preadmission environment? Yes * Can the patient safely return to the preadmission environment? No * Has this patient been hospitalized within the prior 30 days at any hospital? No Coverage Notice Reviewer: [id number] Dobson Notice Issued Date-Time: 03/20/2020 16:55 Notice Type: Medicare Outpatient Observation Notice Notice Delivered To: Patient Relationship to Patient: Director Veterinary Name: Delivery Method: HAND - Hand Delivered Karen Days: Prior Verbal Notification: Recipient Understood Notice: Yes Recipient Signature: Yes Med Rec Note Co-signed by Attending: Coverage Notice Comment: DIAZ GIVEN AND EXPLAINED Reviewer: [id number] Dobson Notice Issued Date-Time: 03/25/2020 13:40 Notice Type: IM Discharge Notice Notice Delivered To: Patient Relationship to Patient: Director Veterinary Name: Delivery Method: HAND - Hand Delivered Karen Days: Prior Verbal Notification: Recipient Understood Notice: Yes Recipient Signature: Yes Med Rec Note Co-signed by Attending: Coverage Notice Comment: Reviewer: [id number] Dobson Notice Issued Date-Time: 03/25/2020 13:40 Notice Type: Patient Choice Letter Notice Delivered To: Patient Relationship to Patient: Director Veterinary Name: Delivery Method: HAND - Hand Delivered Karen Days: Prior Verbal Notification: Recipient Understood Notice: Yes Recipient Signature: Yes Med Rec Note Co-signed by Attending: Coverage Notice Comment: richard for inpatient at [facility] Last DP export: 03/25/20 12:50 p Patient Name: ANTONIA SAMUEL Page [phone] at 0912 All edits/amendments must be made on the electronic document DICTATION DATE: 03/26/20911 DE ICER ELEMENT WINDER: TOÑO 03/26/20911 RPT#: [id number] DC DATE:03/25/20 STATUS: DIS IN [facility] [address] [place] [address] END OF REPORT
== END 2020-03-25 18:38 | DRG 515 ==
LOC: D.MS 11:56 → OBSVTIME 11:56 → D.MS 11:56 → OBSVTIME 03-21 15:58 → D.MS 03-21 16:00
PROVIDERS: Neurological Surgery; ADMIT Family Medicine; ATTEND Family Medicine
PROC: 01NB0ZZ Release Lumbar Nerve, Open Approach (ICD-10-PCS; principal; 2020-03-22 09:00)
DX: M48.061 Spinal stenosis, lumbar region without neurogenic claudication (principal); G95.19 Other vascular myelopathies; G95.89 Other specified diseases of spinal cord; R26.1 Paralytic gait; I25.10 Atherosclerotic heart disease of native coronary artery without angina pectoris; E78.5 Hyperlipidemia, unspecified; E03.9 Hypothyroidism, unspecified; I73.9 Peripheral vascular disease, unspecified

== ENCOUNTER 2020-03-25 17:07 | Inpatient (IN) | payer MEDICARE, OTHER ==
[~2020-03-25] VITALS: Ht 172.7 cm; Wt 81.6 kg
[~2020-03-25 17:07] MED LIST changes: +ALDACTONE25 MG PO; +CILOSTAZOL100 MG PO; +GABAPENTIN300 MG PO; +HUMULIN 70100 UNIT/1; +HYDRALAZINE HCL50 MG PO; +INVOKANA100 MG PO; +ISOSORBIDE DINI20 MG PO; +OXYBUTYNIN CHLOR5 M1 PO; +PEPCID40 MG PO; +ZYLOPRIM300 MG
--- NOTE | 2020-03-25 19:02 | NUR ---
PT LYING IN BED, ALERT AND ORIENTED X4. DENIES ANY NEEDS OR PAIN. COWART PATENT FREE FROM KINKS. CALL LIGHT WITHIN REACH. FALL PRECAUTIONS IN PLACE. CPOC
[2020-03-25 21:44] VITALS: BP 143/80; BMI 27.4
--- NOTE | 2020-03-25 22:21 | NUR ---
PT IS RESTING QUIETLY IN BED WITH EYES OPEN. NO NEEDS VOICED.
--- NOTE | 2020-03-26 04:46 | NUR ---
PT RESTING IN BED WITH EYES CLOSED. NO DISTRESS NOTED.
[2020-03-26 05:57] LABS: BASOPHILS 0.2 % (0-2); EOSINOPHILS 9.7 % (0-7); HEMATOCRIT 36.2 % (42.0-54.0); HEMOGLOBIN 11.9 g/dL (13.5-17.5); IMMATURE GRANULOCYTES 0.7 % (0-5); LYMPHOCYTES 15.8 % (15-50); MCH 32.3 pg (26.0-34.0); MCHC 32.9 g/dL (31.0-37.0); MCV 98.4 fL (80.0-100.0); MEAN PLATELET VOLUME 8.2 fL (7.4-10.4); NEUTROPHILS 62.6 % (40-80); PLATELET COUNT 260 10x3/uL (130-400); RBC 3.68 10x6/uL (4.20-6.10); WBC 8.4 10x3/uL (4.8-10.8)
[2020-03-26 06:21] LABS: CALC OSMOLALITY 264 mosm/kg (275-300); CALCIUM 9.6 mg/dL (8.5-10.1); CARBON DIOXIDE 26.6 mmol/L (21.0-32.0); CHLORIDE - SERUM 100 mmol/L (98-107); CREATININE - SERUM 0.6 mg/dL (0.6-1.3); GLUCOSE 104 mg/dL (74-106); SODIUM 132 mmol/L (136-145); UREA NITROGEN 13 mg/dL (7-18); eGFR NON AFRICAN AMERICAN > 90 mL/min (90-120)
[2020-03-26 08:00] VITALS: BP 132/80
--- NOTE | 2020-03-26 08:00 | NUR ---
SHIFT ASSMT COMPLETED.BREAKFAST GIVEN.CL IN REACH.
[2020-03-26 08:02] LABS: BILIRUBIN NEGATIVE (NEGATIVE); GLUCOSE NEGATIVE (NEGATIVE); KETONE NEGATIVE (NEGATIVE); NITRITE NEGATIVE (NEGATIVE); UROBILINOGEN NORMAL (NORMAL)
[2020-03-26 08:03] LABS: AMORPHOUS SEDIMENT <1+ /lpf (NONE SEEN); BACTERIA MODERATE /hpf (NEGATIVE); EPITHELIAL CELLS 0-5 /hpf (0-5); WHITE CELLS - URINE 25-50 /hpf (NEGATIVE)
--- NOTE | 2020-03-26 09:33 | NUR ---
PATIENT ADMITTED TO REHAB FROM ACUTE FLOOR. DR. TIERNEY IS HIS PCP. DME AT HOME IS A CANE, WALKER, SHOWERCHAIR AND A BEDSIDE COMMODE. PATIENTS SPOUSE WILL TRANSPORT HIM HOME. WILL CONTINUE TO FOLLOW WITH PATIENT.
[2020-03-26 13:30] VITALS: Ht 172.7 cm; Wt 81.6 kg
--- NOTE | 2020-03-26 19:30 | NUR ---
PT IN BED WATCHING TV, NO NEEDS NOTED, FALL PRECAUTIONS IN PLACE, FLUIDS/CALL LIGHT WITHIN REACH
[2020-03-26 23:05] VITALS: BP 96/63
[2020-03-27 06:47] LABS: BASOPHILS 0.4 % (0-2); EOSINOPHILS 10.1 % (0-7); HEMATOCRIT 34.3 % (42.0-54.0); HEMOGLOBIN 11.3 g/dL (13.5-17.5); IMMATURE GRANULOCYTES 0.9 % (0-5); LYMPHOCYTES 24.6 % (15-50); MCH 31.9 pg (26.0-34.0); MCHC 32.9 g/dL (31.0-37.0); MCV 96.9 fL (80.0-100.0); MEAN PLATELET VOLUME 8.3 fL (7.4-10.4); MONOCYTES 12.3 % (2-11); NEUTROPHILS 51.7 % (40-80); PLATELET COUNT 301 10x3/uL (130-400); RBC 3.54 10x6/uL (4.20-6.10); RDW 12.9 % (11.5-14.5); WBC 7.4 10x3/uL (4.8-10.8)
[2020-03-27 07:04] LABS: CALC OSMOLALITY 268 mosm/kg (275-300); CALCIUM 9.6 mg/dL (8.5-10.1); CARBON DIOXIDE 24.3 mmol/L (21.0-32.0); CHLORIDE - SERUM 101 mmol/L (98-107); CREATININE - SERUM 0.7 mg/dL (0.6-1.3); GLUCOSE 107 mg/dL (74-106); POTASSIUM - SERUM 3.7 mmol/L (3.5-5.1); SODIUM 134 mmol/L (136-145); UREA NITROGEN 15 mg/dL (7-18); eGFR NON AFRICAN AMERICAN > 90 mL/min (90-120)
[2020-03-27 08:00] VITALS: BP 117/68
--- NOTE | 2020-03-27 08:00 | NUR ---
SHIFT ASSMT COMPLETED.
--- NOTE | 2020-03-27 16:24 | NUR ---
CARE TEAM MEETING: PATIENT IS NEW TO UNIT AND WILL BE RA AT NEXT MEETING. WILL CONTINUE TO FOLLOW WITH PATIENT.
--- NOTE | 2020-03-27 16:30 | RHP ---
PATIENT: ANTONIA SAMUEL MEDICAL RECORD: [id number] ACCOUNT: [id number] LOCATION:[id number] : [birth year] ADMISSION DATE: 03/25/20 REHABILITATION HISTORY AND PHYSICAL EXAMINATION POST ADMISSION PHYSICIAN EXAMINATION ADMITTING DIAGNOSIS: Spinal cord disorder. HISTORY OF PRESENT ILLNESS: The patient admitted to rehab secondary to severe lumbar spinal stenosis status post L3-L4 lumbar laminectomy and decompression. This is an 80-year-old gentleman who presented to the hospital due to increased back pain and inability to walk. He is a former , had L1 compression fracture with kyphoplasty done in the past. Some time, he fell and had a pelvic fracture, he was treated conservatively, was in rehab, was able to walk when he left rehab. Over the last several weeks, he has been having increasing trouble with his back and leg weakness. He says his left leg is very weak and he really cannot use it much at all. His right leg was getting weak as well. He has had a little trouble urinating and defecating. He had outpatient CTA of his lower extremities showing mild peripheral vascular disease due to external claudication, was placed on aspirin and Pletal without improvement, having increasing trouble with his leg weakness. MRI was ordered of his lumbar spine showing an old L5-S1 lumbar fusion, vertebroplasty changes at L1, multiple T1-T2 hyperintense lesions are noted in his vertebral bodies consistent with hemangiomas, had interval development of a hyperintense signal to lower thoracic spine at T12-L1 representing myelomalacia. He has got anterior subluxation L5-S1, a 50% compression fracture of L1. Additionally, severe left neural foraminal stenosis noted at L2-L3 and severe right L3-L4 foraminal narrowing. His states that he was unable to walk, was very weak. Consultation was obtained from Dr. Sigala, who recommended he be admitted to the hospital for further evaluation. He has also complained of proximal thigh myositis versus polymyalgia rheumatica. The patient was seen by the neurologist during his acute stay and plan for some further testing on an outpatient basis, been receiving PT and OT throughout his stay. He needs to be monitored closely for his surgical area, monitoring his blood sugars closely, monitoring urinary output. He has got pain control, electrolyte protocol, balance deficits and decreased activity tolerance, decreased range of motion, decreased strength and gait disturbance. He has got inability to care for himself and self-care deficits. These are barriers to his discharge home. He would like to be independent with his ADLs and mobility to be able to return home. He is currently set-up for max assist for ADLs, max assist for mobility. He has had a stay in our acute rehab with good outcome in the past and will return here. COMORBIDITIES: Include weakness status post kyphoplasty, left hip pain, paralytic gait, generalized muscle weakness, lumbar stenosis, hypothyroidism, diabetes, self-care deficits, gait disturbance, high fall risk, and urinary retention. PAST MEDICAL HISTORY: Significant for comminuted fracture of his left acetabulum, his left superior and inferior ramus on November of 2019 status post falls, he has got coronary artery disease, got hypothyroidism, compression fracture of lumbar stenosis, history of upper GI bleed and anemia secondary to AVMs, hypothyroidism, BPH, and diabetes. PAST SURGICAL HISTORY: Includes prostate surgery, he is on L5-S1 fusion, remote fracture of his left clavicle, TURP, simple renal cyst removal, peripheral HISTORY AND PHYSICAL [id number] ANTONIA SAMUEL vascular disease and cholecystectomy. ALLERGIES: No known drug allergies. CURRENT MEDICATIONS: Include allopurinol 300 mg daily, spironolactone 25 mg daily, oxybutynin 10 mg daily, Neurontin 300 mg daily, Pepcid 40 mg daily, Plavix 75 mg daily, aspirin chewable 81 mg daily, Isordil 20 mg t.i.d., Synthroid 112 mcg daily, Pravachol 40 mg at bedtime, Pletal 100 mg b.i.d., MiraLax 17 grams in 8 ounces of water daily, Mcalester 5/325 one tab every 6 hours p.r.n. HABITS: No alcohol or tobacco use. FAMILY HISTORY: Noncontributory. SOCIAL HISTORY: The patient hopes to return back home and get back to his prior level of functioning. REVIEW OF SYSTEMS: GENERAL: Does complain of weakness, especially on the left. HEENT: Denies cold, cough, or congestion. CARDIOVASCULAR: Denies any chest pain. PHYSICAL EXAMINATION: VITAL SIGNS: Stable, afebrile. GENERAL: An elderly gentleman in no acute distress upon exam. HEENT: Normocephalic and atraumatic. Mucosa moist. NECK: Supple. No lymphadenopathy. LUNGS: Clear at this time with no wheezing, rhonchi or rales. HEART: Regular rate and rhythm. He does have a holosystolic murmur. ABDOMEN: Soft, benign, and nondistended. Positive bowel sounds times 4. EXTREMITIES: No clubbing, cyanosis or edema. NEUROLOGIC: He does have proximal muscle weakness. LABORATORY DATA: His admit UA did show 2+ leukocyte esterase and moderate bacteria, this was done today. His white count is 8.4, H&H of 11.9 and 36.2 and platelet count is 260. Sodium 132, potassium 4.0, BUN and creatinine of 13 and 0.6 and blood sugar is noted to be 104. ASSESSMENT: This is an 80-year-old gentleman admitted to the rehab with a working diagnosis of spinal cord dysfunction status post surgery. The patient has potential to make improvement. We instituted the following multidisciplinary therapies including but not limited to physical, occupational, respiratory, speech, nutritional services, prosthetics and orthotics. Given his complex medical condition and risks for more complications, rehabilitation services cannot be provided at a low level of care such as [facility] facility. PLAN: 1. Admit to [facility] for intensive inpatient therapy to include the following disciplines: A. Physical therapy to improve gait, all transfer skills and bed mobility to a modified independent level. B. Occupational therapy to improve activities of daily living. C. Case management to assist with discharge planning and placement options. HISTORY AND PHYSICAL [id number] ANTONIA SAMUEL Nutrition to assist with nutritional needs. E. Rehabilitation nursing to assist in monitoring the patient's underlying medical conditions and to assist with any type of bowel or bladder management. 2. The patient's current medication and medical care will be continued. 3. The patient will be placed on standard fall precautions. 4. The patient's estimated length of stay is approximately 7-10 days. 5. We will go ahead and start him on antibiotics for his urinary tract infection and I will go ahead and check a vitamin D level on him and I will see again in the a.m. TRANSINT:[id number] Voice Confirmation ID: [id number] DOCUMENT ID: [id number] CARLITOS notes whether there has been none or any medical/functional change since admission: - No change since pre-admission screen. CARLITOS attests patient continues to be appropriate for IRF: - Continues to be appropriate. TREY GANDHI MD at 1630 CC: [id number] DICTATION DATE: 03/26/20924 AUTOMOBILE MECHANIC ASSISTANT: 03/26/20 1017 ADM IN [facility] [address] [place] [address]
[2020-03-27 20:33] VITALS: BP 108/75
--- NOTE | 2020-03-27 20:54 | NUR ---
PRN NORCO GIVEN FOR BACK PAIN 8 OF 10 AT 20:34
--- NOTE | 2020-03-27 21:33 | NUR ---
RECIEVED PATIENT IN BED, CALM AND COOPERATIVE, SOCIAL AND CONVERSATIONAL WITH STAFF, ADRESSED BACK PAIN WITH PRN NORCO, WILL CONTINUE TO MONITOR, NO DISTRESS NOTED OR VOICED BY PATIENT.
--- NOTE | 2020-03-28 00:13 | NUR ---
PATIENT RESTING QUIETLY IN BED EYES CLOSED, RESPIRATION EVEN AND UNLABORED.
[2020-03-28 08:00] VITALS: BP 114/70
--- NOTE | 2020-03-28 12:30 | NUR ---
SITTING UP IN BED FOR LUNCH. DENIES NEEDS OR C/O. CALL LIGHT IN REACH
--- NOTE | 2020-03-28 14:18 | NUR ---
Nutrition Follow-up: Pt reports improvement in appetite/PO intake and N/V resolved. Diet: Regular PO intake: 75% x 3 yesterday Wt: 180# (03/26) Last BM: 03/28 Labs noted (03/27): Na 134 Meds noted: Pepcid -Encourage PO intake and honor food preferences. -Monitor wt. -RD following.
[2020-03-28 20:00] VITALS: BP 116/71
--- NOTE | 2020-03-28 20:00 | NUR ---
PATIENT RECEIVED SITTING UP IN BED WATCHING TV. ASSESSMENT & VITAL SIGNS DONE. BED LOW. CALL LIGHT WITHIN REACH. WILL CONTINUE TO MONITOR.
--- NOTE | 2020-03-28 23:56 | NUR ---
PATIENT USED CALL LIGHT FOR ASSIST. PATIENT C/O PAIN LEVEL 10 TO LOWER SACRUM. PAIN MEDICATION GIVEN. BED LOW. CALL LIGHT WITHIN REACH. WILL CONTINUE TO MONITOR.
--- NOTE | 2020-03-29 03:10 | NUR ---
I have reviewed this patient and I concur with the Shift Assessment completed by the Licensed Practical Nurse today this shift.
--- NOTE | 2020-03-29 04:51 | NUR ---
PATIENT EYES CLOSED. RESPIRATIONS 18 & EVEN. BED LOW. CALL LIGHT WITHIN REACH. WILL CONTINUE TO MONITOR.
--- NOTE | 2020-03-29 07:45 | NUR ---
ALERT AND ORIENTED.DENIES NEEDS.COWART CATH PATENT TO GRAVITY WITH YELLOW URINE,WILL CONTINUE WITH CURRENT PLAN OF CARE.CL IN EASY REACH,BED IN LOW POSITION.
[2020-03-29 08:00] VITALS: BP 113/80
[2020-03-29 08:02] LABS: BASOPHILS 0.6 % (0-2); EOSINOPHILS 11.3 % (0-7); HEMOGLOBIN 11.1 g/dL (13.5-17.5); IMMATURE GRANULOCYTES 1.2 % (0-5); LYMPHOCYTES 20.1 % (15-50); MCH 31.7 pg (26.0-34.0); MCHC 32.6 g/dL (31.0-37.0); MCV 97.1 fL (80.0-100.0); MEAN PLATELET VOLUME 8.4 fL (7.4-10.4); MONOCYTES 11.1 % (2-11); NEUTROPHILS 55.7 % (40-80); PLATELET COUNT 306 10x3/uL (130-400); RDW 12.8 % (11.5-14.5); WBC 6.5 10x3/uL (4.8-10.8)
[2020-03-29 08:14] LABS: CALC OSMOLALITY 272 mosm/kg (275-300); CALCIUM 9.3 mg/dL (8.5-10.1); CARBON DIOXIDE 23.8 mmol/L (21.0-32.0); CHLORIDE - SERUM 104 mmol/L (98-107); CREATININE - SERUM 0.8 mg/dL (0.6-1.3); GLUCOSE 91 mg/dL (74-106); POTASSIUM - SERUM 3.8 mmol/L (3.5-5.1); SODIUM 137 mmol/L (136-145); UREA NITROGEN 9 mg/dL (7-18); eGFR NON AFRICAN AMERICAN > 90 mL/min (90-120)
[2020-03-29 20:04] VITALS: BP 104/62
--- NOTE | 2020-03-29 20:10 | NUR ---
PATIENT RECEIVED LAYING DOWN IN BED WATCHING TV. ASSESSMENT & VITAL SIGNS DONE. NO C/O PAIN OR DISTRESS AT THIS TIME. COWART PATENT WITH YELLOW COLOR URINE. BED LOW. CALL LIGHT WITHIN REACH. WILL CONTINUE TO MONITOR.
--- NOTE | 2020-03-30 01:34 | NUR ---
I have reviewed this patient and I concur with the Shift Assessment completed by the Licensed Practical Nurse today this shift.
--- NOTE | 2020-03-30 02:49 | NUR ---
PATIENT EYES CLOSED. RESPIRATIONS 18 & EVEN. BED LOW. CALL LIGHT WITHIN REACH. WILL CONTINUE TO MONITOR.
[2020-03-30 09:49] VITALS: BP 132/82
[2020-03-30 10:30] VITALS: BP 132/82
--- NOTE | 2020-03-30 19:05 | NUR ---
GREETED PATIENT AND INTRODUCED MYSELF HIS NURSE. PATIENT IS LAYING IN BED WATCHING TV AT THIS TIME. RESPIRATIONS EVEN. NO S/S OF DISTRESS. DENIES ANY NEEDS AT THIS TIME. BEDSIDE SHIFT REPORT COMPLETE FROM OFF GOING NURSE. CALL LIGHT IN REACH.
[2020-03-30 19:30] VITALS: BP 102/58
--- NOTE | 2020-03-30 19:49 | NUR ---
AWAKE AND WATCHING TV.DENIES NEEDS.ASSESSMENT COMPLETED.COWART CATH PATENT TO GRAVITY WITH CLEAR YELLOW URINE.WILL CONTINUE WITH CURRENT PLAN OF CARE.
--- NOTE | 2020-03-30 23:57 | NUR ---
PT AWAKE LAYING IN BED WATCHING TV. DENIES ANY NEEDS AT THIS TIME. CALL LIGHT IN REACH.
--- NOTE | 2020-03-31 08:00 | NUR ---
SHIFT ASSMT COMPLETED.
[2020-03-31 08:11] VITALS: BP 135/76
--- NOTE | 2020-03-31 18:55 | NUR ---
GREETED PATIENT AND INTRODUCED MYSELF HIS NURSE. PATIENT IS LAYING IN BED RESTING QUIETLY AT THIS TIME. RESPIRATIONS EVEN. NO S/S OF DISTRESS. DENIES ANY NEEDS AT THIS TIME. CALL LIGHT IN REACH.
--- NOTE | 2020-03-31 22:15 | NUR ---
ASSITED PATIENT TO BATHROOM USING WHEELCHAIR AND OTHER NURSING STAFF. PATIENT IS A TOTAL ASSIST AND WAS UNABLE TO USE THE SLIDING BOARD TO TRANSFER. PATIENT STATED THAT HE DIDNT APPRECIATE BEING TOLD WHAT TO DO ABOUT DRINKING WATER AND TO ALSO TELL NURSING STAFF WHEN HE NEEDED TO URINATE. THIS NURSE EXPLAINED THAT WE WERE ONLY TRYING TO MAKE SURE THAT HIS BLADDER WAS WORKING CORRECTLY SINCE THE REMOVAL OF THE COWART EARLIER IN THE DAY. PATIENT STATED " I DO NOT NEED SOMEONE TO TELL ME WHEN TO DRINK, OR WHEN TO GO TO THE BATHROOM." PATIENT DOES NOT WANT TO BE TAUGHT ANYTHING CONCERNING HOW TO BETTER HELP HIM.
[2020-03-31 22:45] VITALS: BP 118/64
--- NOTE | 2020-04-01 03:07 | NUR ---
PT RESTING QUIETLY WITH EYES CLOSED. RESPIRATIONS EVEN. NO S/S OF DISTRESS. CALL LIGHT IN REACH.
[2020-04-01 06:41] LABS: BASOPHILS 0.3 % (0-2); EOSINOPHILS 6.1 % (0-7); HEMATOCRIT 35.7 % (42.0-54.0); HEMOGLOBIN 12.1 g/dL (13.5-17.5); IMMATURE GRANULOCYTES 0.8 % (0-5); MCH 32.4 pg (26.0-34.0); MCHC 33.9 g/dL (31.0-37.0); MCV 95.5 fL (80.0-100.0); MEAN PLATELET VOLUME 8.5 fL (7.4-10.4); MONOCYTES 7.9 % (2-11); NEUTROPHILS 65.9 % (40-80); PLATELET COUNT 355 10x3/uL (130-400); RBC 3.74 10x6/uL (4.20-6.10); RDW 12.7 % (11.5-14.5); WBC 9.2 10x3/uL (4.8-10.8)
--- NOTE | 2020-04-01 06:41 | NUR ---
PT AWAKE AND LAYING IN BED WATCHING TV. RESPIRATIONS EVEN. NO S/S OF DISTRESS. CALL LIGHT IN REACH.
[2020-04-01 07:03] LABS: CALC OSMOLALITY 267 mosm/kg (275-300); CALCIUM 9.9 mg/dL (8.5-10.1); CARBON DIOXIDE 23.2 mmol/L (21.0-32.0); CHLORIDE - SERUM 101 mmol/L (98-107); CREATININE - SERUM 0.8 mg/dL (0.6-1.3); GLUCOSE 104 mg/dL (74-106); POTASSIUM - SERUM 3.7 mmol/L (3.5-5.1); SODIUM 135 mmol/L (136-145); UREA NITROGEN 8 mg/dL (7-18); eGFR NON AFRICAN AMERICAN > 90 mL/min (90-120)
--- NOTE | 2020-04-01 08:00 | NUR ---
IN THERAPY GYM WORKING WITH THERAPIST
[2020-04-01 08:24] VITALS: BP 121/82
--- NOTE | 2020-04-01 12:27 | NUR ---
SITTING UP BED EATING LUNCH. HAD PAIN MEDS EARLIER. COMPLAINS OFTEN ABOUT EVERYTHING FROM BEING INCONTINENT TO THE FOOD TEXTURE. HE REMAINS TOTAL/MAX TRANSFER ASST. CALL LIGHT IN REACH
[2020-04-01 20:00] VITALS: BP 105/68
--- NOTE | 2020-04-01 20:00 | NUR ---
PATIENT RECEIVED LAYING IN BED WATCHING TV. ASSESSMENT & VITAL SIGNS DONE. BED LOW. CALL LIGHT WITHIN REACH. WILL CONTINUE TO MONITOR.
--- NOTE | 2020-04-01 22:10 | NUR ---
PATIENT URINAL EMPTIED OF 500 CC OF URINE. BED LOW. CALL LIGHT WITHIN REACH. WILL CONTINUE TO ONITOR.
--- NOTE | 2020-04-01 23:50 | NUR ---
I have reviewed this patient and I concur with the Shift Assessment completed by the Licensed Practical Nurse today this shift.
--- NOTE | 2020-04-02 00:25 | NUR ---
PATIENT AWAKE. URINAL EMPTIED OF 200 CC OF CLEAR YELLOW COLORED URINE. BED LOW. CALL LIGHT WITHIN REACH. WILL CONTINUE TO MONITOR.
--- NOTE | 2020-04-02 02:48 | NUR ---
PATIENT USED CALL LIGHT FOR ASSIST. PATIENT HAD INCONTINENCE IN BRIEF. BRIEF TAKEN OFF. PERIAREA & BUTTOCKS CLEANED. NEW BRIEF ON. PATIENT COVERS ON. CALL LIGHT WITHIN REACH. URINAL EMPTIED OF 300 CC OF YELLOW COLORED URINE. WILL CONTINUE TO MONITOR.
[2020-04-02 08:23] VITALS: BP 142/84
--- NOTE | 2020-04-02 14:50 | NUR ---
ORDER HAS BEEN FAXED TO [facility] FOR A TUB TRANSFER BENCH AND 2 SLIDE BOARDS, 30" AND A 24". WILL CONTINUE TO FOLLOW WITH PATIENT.
--- NOTE | 2020-04-02 20:20 | NUR ---
PATIENT RECEIVED SITTING UP IN BED WATCHING TV. ASSESSMENT & VITAL SIGNS DONE. BED LOW. CALL LIGHT WITHIN REACH. WILL CONTINUE TO MONITOR.
[2020-04-02 21:58] VITALS: BP 107/60
--- NOTE | 2020-04-03 04:03 | NUR ---
I have reviewed this patient and I concur with the Shift Assessment completed by the Licensed Practical Nurse today this shift.
[2020-04-03 08:00] VITALS: BP 116/80
[2020-04-03 08:20] LABS: BASOPHILS 0.6 % (0-2); EOSINOPHILS 7.6 % (0-7); HEMATOCRIT 36.5 % (42.0-54.0); HEMOGLOBIN 12.2 g/dL (13.5-17.5); IMMATURE GRANULOCYTES 0.7 % (0-5); LYMPHOCYTES 18.6 % (15-50); MCH 32.2 pg (26.0-34.0); MCHC 33.4 g/dL (31.0-37.0); MCV 96.3 fL (80.0-100.0); MEAN PLATELET VOLUME 8.5 fL (7.4-10.4); NEUTROPHILS 63.5 % (40-80); PLATELET COUNT 330 10x3/uL (130-400); RBC 3.79 10x6/uL (4.20-6.10); RDW 12.8 % (11.5-14.5)
[2020-04-03 08:27] LABS: CALC OSMOLALITY 266 mosm/kg (275-300); CALCIUM 9.7 mg/dL (8.5-10.1); CARBON DIOXIDE 23.2 mmol/L (21.0-32.0); CHLORIDE - SERUM 103 mmol/L (98-107); CREATININE - SERUM 0.7 mg/dL (0.6-1.3); GLUCOSE 98 mg/dL (74-106); POTASSIUM - SERUM 3.9 mmol/L (3.5-5.1); SODIUM 134 mmol/L (136-145); UREA NITROGEN 10 mg/dL (7-18); eGFR NON AFRICAN AMERICAN > 90 mL/min (90-120)
[2020-04-03] MEDS ORDERED: HYDROCODON-ACE1 EA10 PO (08:38)
--- NOTE | 2020-04-03 09:32 | NUR ---
Nutrition follow-up: Diet: Regular PO intake 75% average at most meals Labs reviewed Wt: 180# +BM PO intake good at this time RDN following.
--- NOTE | 2020-04-03 10:53 | NUR ---
PATIENT DISCHARGING HOME WITH FAMILY TODAY. [facility] WILL PROVIDE THERAPY AT HOME. [facility] HAS DELIVERED 2 SLIDE BOARDS AND A TUB TRANSFER BENCH. CECILIA SIGNED AND IMM SERVED AND EXPLAINED TO PATIENT. DR. TIERNEY 04/09/20 @ 3:10, DR. CAIN 04/17/20 @ 3:30. NO COMPARE DATA REVIEWED PATIENT HAS BEEN A CLIENT OF [facility] IN THE PAST. DISCHARGE INSTRUCTIONS FAXED TO PCP, HOME [facility]ALTH AND REVIEWED WITH PATIENT PER PRIMARY NURSE.
== END 2020-04-03 14:07 | disposition home health service (06) | DRG 552 ==
LOC: D.REHAB 17:07
PROVIDERS: ADMIT Emergency Medicine; ATTEND Emergency Medicine
DX: M48.061 Spinal stenosis, lumbar region without neurogenic claudication (principal); G95.89 Other specified diseases of spinal cord; R26.1 Paralytic gait; M62.81 Muscle weakness (generalized); E03.9 Hypothyroidism, unspecified; Z91.81 History of falling; R33.9 Retention of urine, unspecified; I25.10 Atherosclerotic heart disease of native coronary artery without angina pectoris; N40.0 Benign prostatic hyperplasia without lower urinary tract symptoms; E11.40 Type 2 diabetes mellitus with diabetic neuropathy, unspecified

== ENCOUNTER → 2020-06-10 18:36 | Outpatient (CLI) | payer MEDICARE, OTHER ==
[2020-03-26 13:30] VITALS: BMI 27.3
[~2020-06-10 18:36] MED LIST changes: +HYDROCODON-ACE1 EA10 PO
[2020-06-10 20:12] LABS: PROTEIN - BODY FLUID 9.3 G/DL
[2020-06-10 22:13] LABS: MACROPHAGES BF 4 %; NEUT - BF 93 %
== END | disposition home or self-care (01) ==
LOC: D.LABREF 18:36
PROVIDERS: ATTEND Orthopaedic Surgery
DX: M25.562 Pain in left knee (principal)